=== PATIENT | female | born 1980 | race Two or more races ===

== ENCOUNTER 2017-05-15 22:11 | Inpatient (IN) | payer OTHER ==
[~2017-05-15] VITALS: Ht 162.6 cm; Wt 95.2 kg
--- NOTE | ~2017-05-15 | CT4 ---
[facility] A Service of [facility] RADIOLOGY TEXT RESULTS PATIENT: LILI DALEY LOCATION: [facility] 240-01 : 82 UNIT #: [id number] AGE: [address]: Joaquin Avery MD SEX: F ORDER DR: [id number] [id number] [place], [place] [address] [id number] I MR#: [id number] Acc #: [id number] NAME: LILI DALEY : 1980 SEX: F STUDY DATE/TIME: 05/16/2017 0:21 UNIT: [facility] ROOM: [facility] [place] STUDY DESCRIPTION: CT Abd and Pelv Wo Cont Attending Physician: Joaquin Avery M.D. Ordering Physician: Tom Stoddard Aprn Primary Care Physician: Primary Care Physician No MEDICAL IMAGING REPORT This report is preliminary unless electronic signature is present EXAM Noncontrast CT abdomen and pelvis DATE: 05/16 1017 HISTORY Left flank pain and lower abdominal pain for 3 days with inability to urinate. COMPARISON: None. PROCEDURE 3 mL noncontrast axial images through the abdomen and pelvis. Enteric contrast not administered. Sagittal and coronal reformed images were obtained. The CT exam was performed with one or more of the following radiation dose reduction techniques: automatic exposure control, adjustment of mA and/or kV according to patient size, and iterative reconstruction. Abdomen findings: An 8 mm obstructing stone is lodged within the left ureterovesical junction resulting in moderate left hydronephrosis and hydroureter. A small nonobstructing stone is seen within the right mid kidney. The gallbladder is contracted around numerous calcified gallstones. No pericholecystic inflammation or biliary ductal dilation is seen. The liver is diffusely and severely steatotic. The spleen, pancreas and adrenal glands are normal. Limited evaluation of bowel due to lack of enteric contrast but no focal bowel inflammation is seen. Appendix is normal. [facility] A Service [facility] RADIOLOGY TEXT RESULTS PATIENT: LILI DALEY LOCATION: [facility] 240-01 : 82 UNIT #: [id number] AGE: [address]: Joaquin Avery MD SEX: F ORDER DR: The images are degraded by motion. Pelvis Findings: Rounded soft tissue density projects anteriorly and partially exophytically from the superior uterine body anteriorly measuring about 4 cm, nonspecific but potentially representing a uterine leiomyoma. Rectum is normal. No pelvic free fluid is identified. IMPRESSION 1. 8-mm stone at the left ureter vesicle junction resulting in moderate left hydronephrosis and hydroureter. 2. Tiny nonobstructing right renal stone. 3. Numerous stones within the gallbladder without evidence of acute inflammation biliary dilation. 4. Marked diffuse hepatic steatosis. 5. Suspected uterine leiomyoma which can be confirmed with pelvic ultrasound on a nonemergent basis if it would aid in clinical management. Dictated by... Joyce Cuello M.D. THIS IS AN ELECTRONICALLY VERIFIED REPORT Joyce Cuello M.D. at 05/16/2017 9:59 PM ANAYELI/zachery TD: 05/16/2017 10:16 JOB #: [id number] MEDICAL IMAGING REPORT Page 1 of 1 COPY
--- NOTE | ~2017-05-15 | DS ---
Unit #: [id number] #: [id number] Patient: LILI DALEY [id number] [address] [address] [id number] I MR#: [id number] NAME: LILI DALEY ROOM: 240 Age: 37 Sex: F Admission Date: 05/16/2017 : 1980 Discharge Date: 05/17/2017 Attending Physician: Joaquin Avery M.D. Primary Care Physician: No Primary Care Physician DISCHARGE SUMMARY PRIMARY DIAGNOSIS Left ureteral calculus. PROCEDURES Left ureteroscopy, laser lithotripsy, stent placement. DISPOSITION Home. FOLLOW-UP Follow up in the office Tuesday, 6 days from now, for stent removal. DISCHARGE MEDICATIONS 1. [place] 5/325 (#30) 1 to 2 q.4-6 hours as needed for pain. 2. Keflex 500 (#18) 1 p.o. t.i.d. until stent removal. HISTORY This [facility] woman presented with left flank pain, the details of which are highlighted in the history of present illness. She had severe nausea and vomiting but no fever or chills. CT showed an 8-mm stone obstructing the distal left ureter. She has essentially no medical history other than a Caesarian section, takes no medications chronically and has no drug allergies. HOSPITAL COURSE The patient was admitted for pain control and the following day seen with an multi craft maintenance technician, and ureteroscopy with laser lithotripsy and stent placement was recommended and discussed, but the laser was not functioning optimally, so this was all postponed one more day, during which she was kept comfortable and the procedure performed. At the time of this dictation, discharge is anticipated with medications and followup as noted. Dictated by... Quinton Wright M.D. WILIAN/mila TD: 05/18/2017 12:13 JOB #: [id number] Unit #: [id number] #: [id number] Patient: LILI DALEY DISCHARGE SUMMARY Page 1 of 1 X Quinton Wright MD X DISCHARGE SUMMARY
--- NOTE | ~2017-05-15 | HP ---
Unit #: [id number] #: [id number] Patient: LILI DALEY [id number] [address] [address] [id number] I MR#: [id number] NAME: LILI DALEY ROOM: 240 Age: 37 Sex: F Admission Date: 05/16/2017 : 1980 Attending Physician: Joaquin Avery M.D. HISTORY AND PHYSICAL CHIEF COMPLAINT Left flank pain. HISTORY OF PRESENT ILLNESS This 37-year-old woman with no prior known history of urolithiasis developed onset of intermittent left flank pain three months ago which became severe for the last three days prompting admission and CT scan. She had nausea and vomiting very severe but no fever or chills. Her pain is marginally controlled with morphine. She has an 8 mm stone obstructing the distal left ureter with hydroureteronephrosis. There are fortunately only faint calcifications in the right kidney and no left upper tract stones appreciated. There is an initial recorded ER comment that she was unable to urinate for three days, but there was no Christopher catheter placed or severe bladder distention, and her renal indices are normal. PAST MEDICAL HISTORY No chronic illness. PAST SURGICAL HISTORY One section. MEDICATIONS None chronically. ALLERGIES None known. FAMILY HISTORY Noncontributory. SOCIAL HISTORY Originally from [place]. 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 PHYSICAL EXAMINATION VITAL SIGNS: Temperature 98.1 degrees, pulse 91, blood pressure 122/78, and respirations 20. Height 5 feet 4 inches. Weight 209 pounds. BMI 36. GENERAL: Patient is markedly obese, lying in bed, alert, cooperative, and fairly comfortable medicated. HEENT: Unremarkable. LUNGS: Clear. CARDIAC: Rate and rhythm regular. Unit #: [id number] #: [id number] Patient: LILI DALEY ABDOMEN: Large, soft, full. Left CVA tenderness elicitable and left groin tenderness. EXTREMITIES: No edema. NEUROLOGIC: Intact. DIAGNOSTIC STUDIES LABORATORY: 3+ blood, positive nitrites, 1+ leukocyte esterase, 5-10 RBCs, and calcium oxalate crystals. Creatinine 1. Serum for WBC 13.9. Urine culture pending. IMAGING: CT scan shows the 8 mm distal left ureteral stone causing hydronephrosis. IMPRESSION Patient has a large distal left ureteral calculus indicating ureteroscopic management due to severity of symptoms and does not appear imminent for passage. Unfortunately, laser is not available today. PLAN Will proceed with left ureteroscopy, laser lithotripsy, and stent placement in the morning. Will change morphine to Dilaudid for better pain control and Zofran every six hours. The procedure was discussed in some detail and can further review complications next visit. Dictated by Shaneka Tijerina/yoselyn TD: 05/16/2017 18:04 JOB #: [id number] HISTORY AND PHYSICAL Page 1 of 1 X Quinton Wright MD X HISTORY AND PHYSICAL
--- NOTE | ~2017-05-15 | OR ---
Unit #: [id number] #: [id number] Patient: LILI DALEY [id number] [address] [place], [place] [address] [id number] MR#: [id number] NAME: LILI DALEY ROOM: 240 Date of Procedure: 05/17/2017 Admission Date: 05/16/2017 Surgeon: Quinton Wright M.D. : 1980 Attending Physician: Joaquin Avery M.D. OPERATIVE REPORT PREOPERATIVE DIAGNOSIS Left ureteral calculus. POSTOPERATIVE DIAGNOSIS Left ureteral calculus. PROCEDURE PERFORMED Cystoscopy with left rigid ureteroscopy, holmium laser lithotripsy, basket extraction of fragments, placement of double-J ureteral stent with external tether. ANESTHESIA General. INDICATIONS FOR PROCEDURE This 37-year-old Italian woman, who does not speak Vietnamese, presented to [facility] with an 8 mm stone lodged in the distal left ureter with hydronephrosis. She was admitted by telephone and I saw her the following day, being available to perform her procedure. Her pain was controlled initially with morphine and switch to Dilaudid. When I saw her, as unfortunately I had to relate that the laser was not functioning well and we thought it safer to perform the procedure the following day. She had been started on Rocephin and fortunately did not have fever or any evidence of infection. DESCRIPTION OF PROCEDURE The patient was given satisfactory general anesthesia. She was positioned dorsal lithotomy. After routine prep and drape, the 21-Greenlandic rigid cystoscope was introduced with a 30-degree lens and video. A Pollack catheter was passed up the ureter to where the stone was lodged and probing allowed passage of a Sensor guidewire up to the kidney. I then dilated with sizes 8, 10, and 12-Greenlandic, leuprolide allowing the rigid ureteroscope to pass alongside the guidewire. I did note in the area, where the stone had been contacted, there was a less than 1 mm bridge of mucosa that had been elevated by the guidewire and the dilator was then passed under this. I repositioned the guidewire in the true lumen noting no particular bleeding and observing this to be a very small amount of the circumference of the ureter. I therefore proceeded to treat the stone with a 365 nanometer laser fiber at settings of 8 repetitions per second and a power of 0.6 chipping off numerous small pieces until there was one moderate fragment which was grasped with a Nitinol basket. Holding this fragment allowed complete clearance of the distal fragments by irrigation Unit #: [id number] #: [id number] Patient: LILI DALEY after which the fragment was removed. A final inspection of the ureter revealed good caliber, no stricture, no important bleeding and minimal mucosal disruption. I did decide to place a stent, but with tether and deployed a 24 x 5 double-J stent in excellent position. The bladder was drained. Numerous stone fragments collected and sent for chemical analysis. The cystoscope was removed. The stent string shortened and tucked within the vagina and a Uro-jet applied. The patient will be discharged with instructions to return to the office Tuesday 6 days from now for stent removal. She will be given [place] and Keflex in the meantime. Dictated by... Shaneka Tijerina/rose TD: 05/18/2017 01:03 JOB #: [id number] OPERATIVE REPORT Page 1 of 1 X Quinton Wright MD X PROCEDURE OPERATIVE NOTE
[2017-05-15 22:44] LABS: URINE SOURCE CLEAN CATCH
[2017-05-15 22:54] LABS: URINE APPEARANCE TURBID; URINE BLOOD 3+ (NEG); URINE COLOR DK YELLOW; URINE GLUCOSE NEG (NEG); URINE KETONE NEG (NEG); URINE LEUKOCYTE ESTERASE 2+ (NEG); URINE NITRATE POS (NEG); URINE PROTEIN 2+ (NEG)
[2017-05-15 22:57] LABS: CULTURE INDICATED? YES; URINE BACTERIA AUWI 4+ (NEGATIVE); URINE SQUAMOUS EPITHELIAL CELL MANY /[HPF]; UWBCS1 AUWI 100-200 (0-5)
[2017-05-15 23:06] LABS: URINE BILIRUBIN NEG (NEG)
[2017-05-15 23:07] LABS: URINE CRYSTALS CALCIUM OXALATE /[HPF]; URINE MUCUS PRESENT
[2017-05-16 00:12] LABS: BASOPHIL% 0.3 % (0-2.5); EOSINOPHIL# 0.1 X10e3 (0-0.7); EOSINOPHIL% 1.1 % (0.0-7.0); HEMATOCRIT 39.4 % (35.0-45.0); HEMOGLOBIN 13.3 gm/dL (12.0-16.0); LYMPHOCYTE# 2.5 X10e3 (1.0-3.5); LYMPHOCYTE% 24.2 % (17.0-45.0); MEAN CORPUSCULAR HEMOGLOBIN 29.8 PG (28-34); MEAN CORPUSCULAR HGB CONC 33.9 g/dL (30-36); MEAN PLATELET VOLUME 8.8 FL (6.5-11.5); MONOCYTE# 0.9 X10e3 (0-1.0); MONOCYTE% 9.1 % (3.0-12.0); NEUTROPHIL# 6.8 X10e3 (1.5-7.1); NEUTROPHIL% 65.3 % (40-75); PLATELET COUNT 253 X10e3 (140-420); RED BLOOD COUNT 4.48 X10e (3.90-5.30); WHITE BLOOD COUNT 10.4 X10e3 (4.0-10.5)
[2017-05-16 00:15] LABS: DIFF IND NO
[2017-05-16 00:36] LABS: ALBUMIN SERUM 4.5 g/dL (3.5-5.0); BILIRUBIN, DIRECT 0.1 mg/dL (0.0-0.2); BILIRUBIN,INDIRECT 0.5 mg/dL (0.0-0.9); BILIRUBIN,TOTAL 0.6 mg/dL (0.2-2.0); CALCIUM SERUM 9.5 mg/dL (8.4-10.2); CREATININE SERUM 0.8 mg/dL (0.6-1.4); GLOM FILT RATE Estimated 102.6 mL/min (>60); POTASSIUM 3.7 mmol/L (3.5-5.1); PROTEIN TOTAL SERUM 7.5 g/dL (6.0-8.3)
[2017-05-16 01:06] LABS: AMYLASE 14 U/L (0-46); LIPASE 22 U/L (22-51)
[2017-05-16 01:50] LABS: URINE APPEARANCE CLOUDY; URINE BLOOD 3+ (NEG); URINE GLUCOSE NEG (NEG); URINE KETONE NEG (NEG); URINE LEUKOCYTE ESTERASE 1+ (NEG); URINE NITRATE POS (NEG); URINE PROTEIN TRACE (NEG); URINE SPECIFIC GRAVITY 1.024 (1.003-1.035); URINE UROBILINOGEN 0.2 MG/DL (NEG)
[2017-05-16 01:53] LABS: URINE BACTERIA AUWI NEG (NEGATIVE); URINE SQUAMOUS EPITHELIAL CELL OCC /[HPF]; UWBCS1 AUWI 0-2 (0-5)
[2017-05-16 02:00] LABS: URINE BILIRUBIN NEG (NEG)
[2017-05-16 02:01] LABS: URINE SOURCE CLEAN CATCH
[2017-05-16 02:02] LABS: URINE COLOR ORANGE
[2017-05-16 02:05] LABS: URINE CRYSTALS CALCIUM OXALATE /[HPF]; URINE MUCUS PRESENT
[2017-05-16] MEDS ORDERED: NO MEDICATIONS (06:28)
[2017-05-16 08:25] LABS: BASOPHIL% 0.3 % (0-2.5); EOSINOPHIL% 0.1 % (0.0-7.0); HEMATOCRIT 39.1 % (35.0-45.0); HEMOGLOBIN 12.8 gm/dL (12.0-16.0); LYMPHOCYTE% 14.5 % (17.0-45.0); MEAN CELL VOLUME 88.4 FL (83-96); MEAN CORPUSCULAR HGB CONC 32.8 g/dL (30-36); MEAN PLATELET VOLUME 8.9 FL (6.5-11.5); MONOCYTE# 0.8 X10e3 (0-1.0); NEUTROPHIL% 79.1 % (40-75); PLATELET COUNT 245 X10e3 (140-420); RED BLOOD COUNT 4.42 X10e (3.90-5.30); RED CELL DISTRIBUTION WIDTH 13.2 % (11.0-15.5); WHITE BLOOD COUNT 13.9 X10e3 (4.0-10.5)
[2017-05-16 08:26] LABS: DIFF IND NO
[2017-05-16 08:52] LABS: ALBUMIN SERUM 3.9 g/dL (3.5-5.0); BILIRUBIN,TOTAL 0.4 mg/dL (0.2-2.0); CALCIUM SERUM 8.6 mg/dL (8.4-10.2); PROTEIN TOTAL SERUM 6.7 g/dL (6.0-8.3)
[2017-05-17] MEDS ORDERED: KEFLEX500 M1 PO (18:51)
[2017-05-17] MEDS ORDERED: LORTAB 5-325 M1 EACH PO (18:52)
== END 2017-05-17 21:30 | disposition home or self-care (01) | DRG 669 ==
LOC: CED 22:11 → EDBD 23:45 → CEDOF 05-16 01:23 → CED 05-16 01:42 → CEDOF 05-16 01:42 → C2A 05-16 01:42 → CEDOF 05-16 03:26 → C2A 05-16 03:26
PROVIDERS: Nurse Practitioner Family; Urology
PROC: 0TC78ZZ Extirpation of Matter from Left Ureter, Via Natural or Artificial Opening Endoscopic (ICD-10-PCS; principal; 2017-05-17 16:00)
PROC: 0T778DZ Dilation of Left Ureter with Intraluminal Device, Via Natural or Artificial Opening Endoscopic (ICD-10-PCS; 2017-05-17 16:00)
DX: N13.2 Hydronephrosis with renal and ureteral calculous obstruction (principal)
CPT/HCPCS: 36415; 74176; 80048; 80053; 80076; 81003; 82150; 82365; 83690; 84702; 84703; 85025; 87086; 88300; 96361; 96374; 96375; 96376; 99285; C1758; C2617; J0696; J1170; J1885; J2250; J2270; J2405; J2765; J3010